=== PATIENT | female | born 1935 | race Caucasian/White ===

== ENCOUNTER → 2020-12-08 10:27 | Outpatient (BNVA) | payer MEDICARE, OTHER, SELFPAY | PROVIDERS: Visit Provider Family Medicine | DX: R05 Cough (principal); R53.83 Other fatigue; J44.9 Chronic obstructive pulmonary disease, unspecified; R79.89 Other specified abnormal findings of blood chemistry; Z79.899 Other long term (current) drug therapy | CPT/HCPCS: 71046; 80053; 80061; 82306; 82607; 82746; 83036; 85025 ==